=== PATIENT | male | born 1975 | race Caucasian/White ===

== ENCOUNTER 2021-12-05 17:05 | Emergency (ER) | payer SELFPAY ==
--- NOTE | 2021-12-05 18:47 | ER ---
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 Coronavirus screen: Vaccine status: Patient reports being unvaccinated. Ebola Screen: Patient negative for fever greater than or equal to 101.5 degrees Fahrenheit, and additional compatible Ebola Virus Disease symptoms Patient denies exposure to infectious person. Patient denies travel to an Ebola-affected area in the 21 days before illness onset. Initial Sepsis Screen: Does the patient meet any 2 criteria? No. Patient's initial sepsis screen is negative. Does the patient have a suspected source of infection? No. Patient's initial sepsis screen is negative. Risk Assessment: Do you want to hurt yourself or someone else? Patient reports no desire to harm self or others. 18:02 Method Of Arrival: Ambulatory 9 18:02 Acuity: KATLYN 4 jg9 18:04 Onset of symptoms is unknown. j9 Triage Assessment: 18:04 General: Appears in no apparent distress. Behavior is calm, cooperative. Pain: j9 Complains of pain in left hand-left middle finger Pain does not radiate. Pain currently is 8 out of 10 on a pain scale. Historical: - Allergies: 18:03 No Known Allergies; jg9 - Home Meds: 18:03 None [Active]; jg9 - PMHx: 18:03 None; jg9 - PSHx: 18:03 None; jg9 - Immunization history:: Adult Immunizations not up to date. - Social history:: Smoking status: Patient reports the use of cigarette tobacco products, smokes one pack cigarettes per day. Screenin:04 Abuse screen: Denies threats or abuse. Denies injuries from another. Nutritional jg9 screening: No deficits noted. Tuberculosis screening: Has had TB. Fall Risk None identified. Vital Signs: 18:02 BP 108 / 79; Pulse 86; Resp 14 S; Temp 97.9(TE); Pulse Ox 100% ; Weight 72.57 kg (R); jg9 Height 6 ft. 1 in. (185.42 cm); 18:30 BP 110 / 80; Pulse 82; Resp 12 S; Pulse Ox 95% on R/A; jg9 18:02 Body Mass Index 21.11 (72.57 kg, 185.42 cm) j9 ED Course: 17:08 Patient arrived in ED. mr 18:03 Triage completed. j9 18:04 Arm band placed on left wrist. jg9 18:05 Arelis Carroll, RN is Primary Nurse. j9 18:05 Patient has correct armband on for positive identification. j9 18:26 Sang Stern PA is PHCP. cp 18:26 Angelica Lopez MD is Attending Physician. cp 18:57 No provider procedures requiring assistance completed. Patient did not have IV access jl7 during this emergency room visit. 12/06 02:59 Attending Physician role handed off by Angelica Lopez MD cp 02:59 Primary Nurse role handed off by Arelis Carroll, VINNIE cp Administered Medications: 12/05 18:56 Drug: Doxycycline 100 mg Route: PO; jl7 18:56 Follow up: Response: Medication administered at discharge. jl7 18:56 Drug: Bactrim (trimethoprim-sulfamethoxazole) (160 mg-800 mg (DS) 1 tablet Route: PO; jl7 18:56 Follow up: Response: Medication administered at discharge. jl7 Outcome: 18:46 Discharge ordered by MD. cp 18:57 Discharged to home ambulatory. jl7 18:57 Condition: stable 18:57 Discharge instructions given to patient, family, Instructed on discharge instructions, follow up and referral plans. medication usage, Demonstrated understanding of instructions, follow-up care, medications, Prescriptions given X 2. 18:57 Patient left the ED. jl7 12/06 03:05 Patient left the ED. bb Signatures: Madison Smith WeberMelanie RN RN Sang West PA PA cp Leal, Jahala, RN RN jl7 Arelis Carroll, VINNIE [place] jg9
--- NOTE | 2021-12-05 18:47 | EDPHYS ---
Physician Documentation [facility] Name: Reji Slater Age: 46 yrs Sex: Male : 1975 Arrival Date: 12/05/2021 Time: 17:08 Bed 10 Private MD: ED Physician HPI: 12/05 18:40 This 46 yrs old Male presents to ER via Ambulatory with complaints of Infected Finger. cp 18:40 The patient or guardian reports pain, swelling, tenderness, erythema. cp 18:40 The complaints affect the dorsal aspect proximal phalanx left middle finger. Context: cp The problem was sustained at work, resulted from laceration. 18:40 Onset: The symptoms/episode began/occurred last week. cp 18:40 Associated signs and symptoms: Pertinent negatives: cyanosis distally, decreased cp sensation distally, fever. Historical: - Allergies: 18:03 No Known Allergies; jg9 - Home Meds: 18:03 None [Active]; jg9 - PMHx: 18:03 None; jg9 - PSHx: 18:03 None; jg9 - Immunization history:: Adult Immunizations not up to date. - Social history:: Smoking status: Patient reports the use of cigarette tobacco products, smokes one pack cigarettes per day. ROS: 18:42 Constitutional: Negative for body aches, chills, fever, poor PO intake. cp 18:42 Cardiovascular: Negative for chest pain, palpitations. cp 18:42 Respiratory: Negative for cough, shortness of breath, wheezing. 18:42 Abdomen/GI: Negative for abdominal pain, nausea, vomiting, and diarrhea. 18:42 MS/extremity: Positive for erythema, pain, swelling, tenderness, of the left middle finger, Negative for decreased range of motion, deformity, paresthesias. 18:42 Skin: Positive for cellulitis, of the dorsal side proximal phalanx left middle finger, superficial wound. 18:42 All other systems are negative. Exam: 18:44 Constitutional: The patient appears in no acute distress, alert, awake, non-toxic, well cp developed, well nourished. 18:44 Musculoskeletal/extremity: Extremities: grossly normal except: noted in the left middle cp finger: erythema, pain, swelling, tenderness, superficial wound, There is no evidence of decreased ROM, deformity, ROM: full active range of motion, in the left middle finger, Perfusion: the extremity is normally perfused throughout, the left middle finger Sensation intact. Tendon exam: specific tendon testing normal through active and passive range of motion Vital Signs: 18:02 BP 108 / 79; Pulse 86; Resp 14 S; Temp 97.9(TE); Pulse Ox 100% ; Weight 72.57 kg (R); j9 Height 6 ft. 1 in. (185.42 cm); 18:30 BP 110 / 80; Pulse 82; Resp 12 S; Pulse Ox 95% on R/A; jg9 18:02 Body Mass Index 21.11 (72.57 kg, 185.42 cm) 9 MDM: 18:34 Patient medically screened. cp 18:46 Data reviewed: vital signs, nurses notes, and as a result, I will discharge patient. cp 18:46 Counseling: I had a detailed discussion with the patient and/or guardian regarding: the cp historical points, exam findings, and any diagnostic results supporting the discharge/admit diagnosis, to return to the emergency department if symptoms worsen or persist or if there are any questions or concerns that arise at home. 12/05 18:44 Order name: Wound Care: please clean and dress wound; Complete Time: 18:56 cp Administered Medications: 18:56 Drug: Doxycycline 100 mg Route: PO; [facility] 18:56 Follow up: Response: Medication administered at discharge. [facility] 18:56 Drug: Bactrim (trimethoprim-sulfamethoxazole) (160 mg-800 mg (DS) 1 tablet Route: PO; 7 18:56 Follow up: Response: Medication administered at discharge. jl7 Disposition Summary: 12/05/21 18:46 Discharge Ordered Location: Home cp Problem: new cp Symptoms: have improved cp Condition: Stable cp Diagnosis - Cellulitis of left finger - left middle cp Followup: cp - With: Private Physician - When: 2 - 3 days - Reason: Worsening of condition Discharge Instructions: - Discharge Summary Sheet cp - Cellulitis, Adult cp Forms: - Medication Reconciliation Form cp - Thank You Letter cp - Antibiotic Education cp - Prescription Opioid Use cp Prescriptions: - Bactrim DS 800-160 mg Oral Tablet - take 1 tablet by ORAL route every 12 hours for 10 days; 20 tablet; Refills: 0, cp Product Selection Permitted - Doxycycline Monohydrate 100 mg Oral Tablet - take 1 tablet by ORAL route every 12 hours for 10 days; 20 tablet; Refills: 0, cp Product Selection Permitted Signatures: Sang Stern PA PA cp Leal, Jahala RN RN jl7 Arelis Carroll RN RN jg9 Corrections: (The following items were deleted from the chart) 12/06 03:00 12/05 18:46 Cellulitis of right finger - right middle cp cp 12/06 03:12/05 18:42 MS/extremity: Positive for erythema, pain, swelling, tenderness, of the cp right middle finger, Negative for decreased range of motion, deformity, paresthesias, cp 12/06 03:01 12/05 18:42 Skin: Positive for cellulitis, of the dorsum proximal phalanx right middle cp finger, superficial wound, cp 12/06 03:12/05 18:44 Musculoskeletal/extremity: Extremities: grossly normal except: noted in the cp right middle finger: erythema, pain, swelling, tenderness, superficial wound, There is no evidence of decreased ROM, deformity, ROM: full active range of motion, in the right middle finger, Perfusion: the extremity is normally perfused throughout, the right middle finger Sensation intact. Tendon exam: specific tendon testing normal through active and passive range of motion cp
[2021-12-05] MEDS ORDERED: SMZ./TMP. 800/160 MG TABLET ONE (18:53)
[2021-12-05] MEDS ORDERED: DOXYCYCLINE 100 MG CAP PO ONE (18:53)
[2021-12-05 19:27] VITALS: TEMP 97.9
[2021-12-06 03:34] VITALS: BP 110/80; O2SAT 95
== END 2021-12-06 03:05 | disposition home or self-care (01) ==
LOC: ER 17:05
DX: L03.012 Cellulitis of left finger (principal); F17.210 Nicotine dependence, cigarettes, uncomplicated
CPT/HCPCS: 99283